=== PATIENT | male | born 1975 | race Caucasian/White ===

== ENCOUNTER 2023-03-20 10:24 | Emergency (ER) | payer OTHER, SELFPAY ==
--- NOTE | 2023-03-20 10:28 | ED.URI ---
HPI - URI/Sore Throat General Chief Complaint: Upper Respiratory Infection Stated Complaint: Sinus Problems Time Seen by Provider: 03/20/23 10:29 Source: patient Mode of arrival: ambulatory Limitations: no limitations History of Present Illness HPI Narrative: Eddy is a 47-year-old male patient presenting to the clinic today with complaints of sinus issues. He reports he has had sinus pressure, congestion, and headache x3 days. No concern for COVID. States he has been at home along for the past 2 weeks. Denies any known fever or chills. Has recently been on amoxicillin for a root canal/tooth infection. MD elicited complaint: cough, nasal congestion and sinus pain Related Data Allergies Allergy/AdvReac Type Severity Reaction Status Date / Time No Known Allergies Allergy Verified 03/20/23 10:27 Review of Systems Review of Systems: Pertinent positives per HPI. Patient denies any fever, chills, rash, headache, visual changes, dizziness, cough, shortness of breath, chest pain, palpitations, nausea, vomiting, diarrhea, constipation, abdominal pain, or any urinary issues. [facility] Past Medical History Medical History Dyslipidemia Left inguinal hernia Vitamin B12 deficiency Vitamin D deficiency Family History Family History Other Family history of malignant neoplasm Social History Social History Smoking status: Current every day smoker Smoking end date: 06/01/97 Alcohol intake: current Drinks per week: 1 Substance use: never Substance use type: does not use Lack of Transportation: No Living arrangements: with family Occupation/Education: occupation Gender identity (if verbalized by the patient): Male Comments At the time of my signature, I reviewed and agree with the nursing past medical, surgical, social, and family history. There is no relevant family history pertinent to the patient complaint. Exam Narrative: General: Well-developed, overweight, in no apparent distress Head: Normocephalic, atraumatic Eyes: Pupils equally round and reactive to light bilaterally, EOM intact, sclera and conjunctive clear, no discharge, lids normal Ears: TMs intact and congested, ear canals clear, no drainage, grossly hearing normal. Nose: Nares patent, clear discharge, no inflammation, no sinus tenderness. Mouth: Oral pharynx red without lesions or masses, good dentition, MMM. Neck: Supple, trachea midline, no enlargement of anterior or posterior cervical nodes, no thyroid masses or goiter palpable. Cardio: Regular rate and rhythm, s1 and s2 normal, no murmur appreciated. Resp: Clear to auscultation bilaterally, no rhonchi, rales, wheezing or rubs Course Course Emergency Course: Portions of this record may have been created with voice recognition software. Level of Care: Express Care Visit Vital Signs Vital signs: Vital signs reviewed MDM - URI/Sore Throat MDM Narrative Medical decision making narrative: At the time of visit patient is resting comfortably on the exam table. I suspect patient has URI. A explained to the patient that we do not typically treat bacterial sinus infections until 10 days or more of symptoms. Will send in prescription for some prednisone to help with the congestion and sinus pressure. Supportive measures were discussed with the patient he voiced understanding discharge instructions agrees to treatment plan. Differential Diagnosis Differential diagnosis: Likely upper respiratory infection, otitis media, sinusitis, viral infection, bronchitis, influenza, pharyngitis and other (COVID) Discharge Plan Discharge Clinical Impression: Acute upper respiratory infection Patient Disposition: Home, Self-Care Condition: Stable Instructions: Antibiotic Form, Upper Respiratory Infection
[2023-03-20 10:33] VITALS: BP 136/65; PULSE 73; RESP 16; TEMP 36.7; O2SAT 98
== END 2023-03-20 10:41 | disposition home or self-care (01) ==
PROVIDERS: Emergency Provider Nurse Practitioner Family; PCP Physician Assistant Medical
DX: J06.9 Acute upper respiratory infection, unspecified (principal); E78.5 Hyperlipidemia, unspecified; E53.8 Deficiency of other specified B group vitamins; E55.9 Vitamin D deficiency, unspecified; Z87.891 Personal history of nicotine dependence
CPT/HCPCS: 99213; G0463

== ENCOUNTER 2024-01-11 12:04 | Emergency (ER) | payer OTHER, SELFPAY ==
--- NOTE | ~2024-01-11 | XR_ITS ---
EXAMINATION: XR chest 2V DATE: 01/11/2024 12:23 INDICATION: Fever and cough. Abnormal breath sounds in right lower lobe. TECHNIQUE: Frontal and lateral views of the chest were obtained. COMPARISON: None. FINDINGS: There are airspace opacities in right lower lobe, consistent with pneumonia. No pleural eff usion or pneumothorax. The heart size is normal. IMPRESSION: 1. Airspace opacities in right lower lobe, consistent with pneumonia. Reviewed, dictated and finalized at location A.
[2024-01-11 12:12] VITALS: BP 144/71; PULSE 85; RESP 18; TEMP 36.6; O2SAT 96
--- NOTE | 2024-01-11 12:12 | ED.URI ---
HPI - URI/Sore Throat General Chief Complaint: Upper Respiratory Infection Stated Complaint: cold symptoms Time Seen by Provider: 01/11/24 12:13 Source: patient, RN notes reviewed and old records reviewed Mode of arrival: ambulatory Limitations: no limitations History of Present Illness HPI Narrative: patient presents to [facility] with complaints fever and cough intermittently for the past 3 days. He does report that 1 of his children has recently been diagnosed with pneumonia. Patient has been taking ibuprofen for his symptoms with moderate relief. He does report some associated body aches. No runny nose, throat became a little bit sore today. He attributes this to cough. He reports body aches become worse when he coughs. He denies any injury or trauma. denies shortness of breath or wheezing.No other concerns or complaints at this time Related Data Allergies Allergy/AdvReac Type Severity Reaction Status Date / Time No Known Allergies Allergy Verified 01/11/24 12:13 Review of Systems Review of Systems: All systems reviewed & are unremarkable except as noted in HPI and below Constitutional: Constitutional: Reports no additional constitutional complaints ENT: Reports system reviewed and no additional complaints, except as documented Cardiovascular: Cardiovascular: Reports no additional cardiovascular complaints Respiratory: Respiratory: Reports as per HPI, Reports no additional respiratory complaints and Reports pain with cough Gastrointestinal: Gastrointestinal: Reports no additional gastrointestinal complaints Musculoskeletal: Musculoskeletal: Reports as per HPI and Reports myalgias PMFSH Past Medical History Medical History Dyslipidemia Left inguinal hernia Vitamin B12 deficiency Vitamin D deficiency Family History Family History Other Family history of malignant neoplasm Social History Social History Smoking status: Current every day smoker Smoking end date: 06/01/97 Alcohol intake: current Drinks per week: 1 Substance use: never Substance use type: does not use Lack of Transportation: No Living arrangements: with family Occupation/Education: occupation Gender identity (if verbalized by the patient): Male Comments At the time of my signature, I reviewed and agree with the nursing past medical, surgical, social, and family history. There is no relevant family history pertinent to the patient complaint. Exam Const: General: cooperative, no acute distress, alert and awake Orientation/consciousness: oriented to person, oriented to place and oriented to time HENMT: Head: normal to inspection Mouth: Yes moist mucous membranes Resp: Effort & Inspection: normal respiratory effort and able to speak in complete sentences Auscultation: no crackles, no rales, no rhonchi, no wheezes and vesicular breath sounds on the right (lower lobe) Cardio: Palpation: normal PMI Rate: regular rate Rhythm: regular rhythm Heart sounds: S1 normal heart sound present and S2 normal heart sound present Neuro: General: oriented to person, oriented to place and oriented to time Cranial nerves: Yes CN's II-XII intact bilaterally Psych: Appearance: grossly normal Thought process: Normal thought process present Insight: Good insight present (Psych) Judgement: Good judgement present (Psych) Course Course Level of Care: Express Care Visit Vital Signs Vital signs: Vital Signs Temperature 97.8 F 01/11/24 12:12 Pulse Rate 85 01/11/24 12:12 Respiratory Rate 18 01/11/24 12:12 Blood Pressure 144/71 H 01/11/24 12:12 Pulse Oximetry 96 01/11/24 12:12 Oxygen Delivery Room Air 01/11/24 12:12 Temperature 97.8 F 01/11/24 12:14 Pulse Rate 85 01/11/24 12:14 Respiratory Rate 18 01/11/24 12:14 Blood Pressure 144
[2024-01-11 12:14] VITALS: BP 144/71; PULSE 85; RESP 18; TEMP 36.6; O2SAT 96
[2024-01-11 12:46] LABS: EDINFLUASCREEN Negative; EDINFLUBSCREEN Negative
== END 2024-01-11 12:54 | disposition home or self-care (01) ==
PROVIDERS: Emergency Provider Nurse Practitioner Family
DX: J18.9 Pneumonia, unspecified organism (principal); Z20.822 Contact with and (suspected) exposure to COVID-19; Z87.891 Personal history of nicotine dependence; E78.5 Hyperlipidemia, unspecified
CPT/HCPCS: 71046; 87426; 87804; 99213; G0463

== ENCOUNTER 2024-04-25 10:14 | Outpatient (CLI) | payer OTHER, SELFPAY ==
--- NOTE | 2024-04-25 10:25 | ECG_ITS ---
Test Date: 2024-04-25 10:30:10 Measurements Intervals [place] Rate: 66 P: 32 MN: 151 QRS: 18 QRSD: 109 T: 4 QT: 364 QTc: 383 Interpretive Statements SINUS RHYTHM NORMAL ECG No previous ECG available for comparison Electronically Signed On 04-25-2024 10:43:00 [employer] by Taz Newman D.O.
== END 2024-04-25 10:15 | disposition home or self-care (01) ==
LOC: ANHSURGERY 10:19
PROVIDERS: PCP Nurse Practitioner Family; Visit Provider Surgery
DX: K40.90 Unilateral inguinal hernia, without obstruction or gangrene, not specified as recurrent (principal); E78.5 Hyperlipidemia, unspecified; Z01.818 Encounter for other preprocedural examination
CPT/HCPCS: 36415; 86850; 86900; 86901; 93005

== ENCOUNTER 2024-05-04 03:10 | Day surgery (SDC) | payer OTHER, SELFPAY ==
--- NOTE | 2024-04-21 14:42 | PC.NURSE ---
Report to the Outpatient Waiting Room, entrance under the green pavilion located off [facility], at time 0600 on date 05/04/24. Planned Procedure Time: 0730.? Time changes happen often and if your time is changed the preop area will call you the afternoon before. - You and your visitor will be asked to self-screen and do not enter if you have any COVID symptoms. Please call surgeon if you need to reschedule. - A mask is optional within the hospital at this time. Patients may have clear liquids (water, carbonated beverages, clear teas, apple juice) until 3 hours prior to surgery with a maximum of 20 ounces. 0430 - No food from midnight until time of surgery and no smoking. This includes no chewing gum, candy or mints. - Infants may have breast milk until 4 hours before surgery, formula 6 hours prior to surgery. - Children will be allowed to drink immediately following surgery.? If applicable, please bring a bottle or sippy cup to assist with drinking. Juice, water, soda, and popsicles are readily available.? For infants on formula, please bring formula the day of surgery.? Pacifiers are allowed. Take only the following medications with a SIP of water on the morning of surgery: bupropion DO NOT STOP ANY OF YOUR OTHER PRESCRIPTION MEDICATIONS PRIOR TO SURGERY EXCEPT THE FOLLOWING Medications to discontinue per physician None Date to take last dose N/A Please no make-up, nail serbian, hairspray, perfume, deodorant, or body powder the day of surgery.? No jewelry (including any body piercings) or valuables the day of surgery, leave them at home.? Please take a shower or bath the night before, or the morning of, surgery with an antibacterial soap.? Wear comfortable, loose fitting clothing.? Children are encouraged to wear pajamas. - Jewelry must be removed prior to entering the operating room.? Rings and piercings that are not removed may be cut off. - The hospital will not accept responsibility for valuables.? - Please leave all valuables, including medications, at home the day of surgery. If you are going home after surgery, a licensed driver license technician must drive you home.? - NO public transportation without another adult if you receive anesthesia. - We recommend that an adult stay with you for 24 hours following discharge. - We also recommend that you do not drive, make important decision, drink alcoholic beverages, or take any drugs that were not prescribed by your health care provider for at least 24 hours after your discharge time. For Pediatric surgeries, we recommend two adults accompany the child home. Follow any additional instructions given to you from your surgeon. Telephone instructions given to Patient-Eddy Perdomo and asked if any additional questions and then verbalized understanding. Patient advised to call surgeon office or pre surgery nurse liaison [phone] if any additional questions.
[2024-04-21 14:47] VITALS: BMI 33.3
[2024-05-04] VITALS (11 sets, daily range): BP systolic 122–150; BP diastolic 63–83; PULSE 68–98; RESP 11–20; TEMP 36.3–36.4; O2SAT 96–99; BMI 33.1
[2024-05-04] MEDS: LACTATED RINGERS 1,000 ML 30 ML IV CONT ×3 (06:25→11:08)
[2024-05-04] MEDS: ACETAMINOPHEN 500 MG TABLET 1000 MG PO (06:31)
[2024-05-04] MEDS: KETOROLAC 15 MG/ML VIAL (*BKC) IV PUSH ×2 (06:32→10:16)
--- NOTE | 2024-05-04 07:16 | WPDANESEPPF ---
Anes - Initial Pre Proc Eval Procedure: Operation Date: 05/04/24 07:30 Proposed Procedures p Robotic Assisted Laparoscopic Left Inguinal Hernia Repair with Mesh - Hung Springer MD Date/Time: 05/04/24 07:16 Surgeon: Hung Springer MD Pre Op Diagnosis: Reducible Left Ing Hernia Patient Data Age: 48 Gender: M Height: 1.83 m Weight: 110.9 kg Last Vital Signs Temp 36.3 C L 05/04/24 06:00 Pulse 68 05/04/24 06:00 Resp 16 05/04/24 06:00 BP 138/77 05/04/24 06:00 Pulse Ox 96 05/04/24 06:00 O2 Del Method Room Air 05/04/24 06:00 Allergies Allergy/AdvReac Type Severity Reaction Status Date / Time No Known Allergies Allergy Verified 05/04/24 06:42 Home Medications Medication Instructions Recorded Confirmed Type bupropion HCl 200 mg tablet,12 hr See Rx Instructions .Route 08/24/23 04/21/24 Rx sustained-release .COMPLEX #180 tabs atorvastatin 40 mg tablet See Rx Instructions .Route 03/11/24 04/21/24 Rx .COMPLEX #90 tabs Patient hx anesthesia problems: none Family hx anesthesia problems: none Results Review: All pre-operative results and documents have been reviewed as part of the pre-operative evaluation. [facility] Past Medical History Medical History Dyslipidemia Left inguinal hernia Vitamin B12 deficiency Vitamin D deficiency Family History Family History Other Family history of malignant neoplasm Social History Social History Social History: 03/11/24 very confident with medical forms Smoking packs per day: 1 Smoking cigarettes per day: 20.0 Years smoked: 15 Smoking pack-years: 15.00 Smoking status: Former smoker Tobacco type: cigarettes Smoking end date: 06/01/97 Alcohol intake: current Drinks per week: 4 Substance use: never Substance use type: does not use Do You Feel Safe in your Home?: Yes Lack of Transportation: No Lack of Food: Never True Current Housing: I Have Housing Concerned About Future Housing: No Difficulty Paying Gas/Electric Bills: No Difficulty Paying for Meds: No Currently Unemployed: No Education: High School Diploma/GED Difficulty w/ Childcare or Family Care: No Living arrangements: with family Occupation/Education: occupation Gender identity (if verbalized by the patient): Male Spiritual care concerns: No Anes - Eval Final PreProcedure Day of Procedure 05/04/24 07:16 Patient weight: obese Heart: regular rate and rhythm Lungs: clear to auscultation Airway: Mallampati scale class III Neurological: alert and oriented Last oral intake: >/= 8 hours ASA classification: III Emergent: no Anesthetic plan: proceed Anesthesia type and monitoring: general ETT and standard monitoring Results Review: All pre-operative results and documents have been reviewed as part of the pre-operative evaluation. Informed Consent: The patient's anesthetic plan and its attendant risks and benefits were discussed with the patient/family/POA. Questions were solicited and answers provided to the satisfaction of the patient/family/POA.
--- NOTE | 2024-05-04 07:18 | P.HP_ITS ---
H&P: HPI History of Present Illness Date/Time: 05/04/24 07:18 Chief Complaint: Left inguinal hernia Narrative: Eddy is a 48 y/o male who presents to the office at the request of Rosangela MÁRQUEZ for evaluation of a left inguinal hernia. Patient states this hernia has been present for about six years. He first noticed this after lifting something heavy. He denies any pain but does report a increase in size of the bulge. States it is reducible. Denies any issues with bowel habits or urinating. Review of Systems Review of Systems: The remainder of the review of systems to include constitutional, HEENT, cardiovascular, respiratory, GI, , integumentary, musculoskeletal, endocrine, immunologic, hematologic, psychiatric, and neurologic are all negative except for which is mentioned above in the HPI. [facility] Past Medical History Medical History Dyslipidemia Left inguinal hernia Vitamin B12 deficiency Vitamin D deficiency Family History Family History Other Family history of malignant neoplasm Social History Social History Social History: 03/11/24 very confident with medical forms Smoking packs per day: 1 Smoking cigarettes per day: 20.0 Years smoked: 15 Smoking pack-years: 15.00 Smoking status: Former smoker Tobacco type: cigarettes Smoking end date: 06/01/97 Alcohol intake: current Drinks per week: 4 Substance use: never Substance use type: does not use Do You Feel Safe in your Home?: Yes Lack of Transportation: No Lack of Food: Never True Current Housing: I Have Housing Concerned About Future Housing: No Difficulty Paying Gas/Electric Bills: No Difficulty Paying for Meds: No Currently Unemployed: No Education: High School Diploma/GED Difficulty w/ Childcare or Family Care: No Living arrangements: with family Occupation/Education: occupation Gender identity (if verbalized by the patient): Male Spiritual care concerns: No Meds Home Medications and Allergies Home Medications Medication Instructions Recorded Confirmed Type bupropion HCl 200 mg tablet,12 hr See Rx Instructions .Route 08/24/23 04/21/24 Rx sustained-release .COMPLEX #180 tabs atorvastatin 40 mg tablet See Rx Instructions .Route 03/11/24 04/21/24 Rx .COMPLEX #90 tabs Allergies Allergy/AdvReac Type Severity Reaction Status Date / Time No Known Allergies Allergy Verified 05/04/24 06:42 Vital Signs Vital Signs - 24 hr 05/04/24 06:00 Temperature 36.3 C L Pulse Rate 68 Respiratory Rate 16 Blood Pressure 138/77 Pulse Oximetry 96 Oxygen Delivery Room Air Exam Const: General: comfortable and no acute distress HENMT: Ears: TM's normal bilaterally Face/Nose/Sinus: Normal nares present Mouth: Yes moist mucous membranes Eyes: General: appearance normal, both eyes and all related structures Sclera: sclerae normal Pupils: Equal, round and reactive pupils present EOM: EOMs intact bilaterally Neck: Neck: supple and no JVD Resp: Effort & Inspection: normal respiratory effort Auscultation: clear to auscultation bilaterally Cardio: Rate: regular rate Rhythm: regular rhythm GI: GI Palp: Yes Soft to palpation, No Firmness to palpation present (GI), No Tenderness to palpation present (GI), No Guarding due to palpation present (GI) and No Hernia present : Other: Penis: normal penis Scrotum: scrotum normal Testes: Testes normal Other: Moderate sized left inguinal hernia. Soft, reducible, non tender to palpation. No right sided weakness. Skin: General skin exam: normal color and no rashes or lesions noted Neuro: General: gait normal Speech: normal speech Motor exam (neuro): 5/5 motor strength present throughout Sensory Exam: normal sensation Extrem: General: normal to inspection Psych: Mental Status: mental status grossly normal Affect: normal affect Assessment and Plan Assessment and plan (1) Left inguinal hernia: Code(s): K40.90 - Unilateral inguinal hernia, without obstruction or gangrene, not specified as recurrent Status: Acute Assessment and Plan: I have reviewed Rosangela MÁRQUEZ's office note prior to today's visit. Moderate sized left inguinal hernia noted on physical exam. I have recommended a robotic assisted laparoscopic left inguinal hernia repair with mesh to be done under general anesthesia as an outpatient. The procedure was discussed in detail including the use of mesh, general description, and usual course of recovery. Risks of recurrence, infection, postop bleeding, prolonged postop pain, possible need to return to surgery were discussed as well. Patient will have a 15lb lifting restriction for 2 weeks postoperatively. All questions were answered. Patient would like to proceed. Follow-up 2 weeks postoperatively.
--- NOTE | 2024-05-04 07:20 | WPDHPUPDATE1 ---
History and Physical Update Update Date/Time: 05/04/24 07:20 History and Physical has been reviewed, including an updated exam of the patient. There are NO changes in the patient's condition. Risks, benefits, and alternatives have been discussed and questions answered. Patient agrees to proceed with procedure.
[2024-05-04] MEDS: ceFAZolin 2 GM/D5W 50 ML 2 GM/50 ML BAG IVPB (07:31)
--- NOTE | 2024-05-04 08:09 | SUR.OPER ---
Dr. Springer obtained verbal consent from Pt's Miguel to also repair the right inguinal hernia.
[2024-05-04] MEDS: BUPivacaine HCL 0.5% 10 ML AMP 30 ML INFILTRATE (08:14)
[2024-05-04] MEDS: LIDO 1%/EPINEPHRINE 1:100,000 50 ML VIAL 30 ML INFILTRATE (08:15)
--- NOTE | 2024-05-04 10:34 | W.PM.PROC2 ---
Procedure Note - Detailed Date of Procedure 05/04/24 Pre-op Diagnosis Reducible Left Ing Hernia Post-op Diagnosis Other (Reducible Bilateral inguinal hernias (right indirect, left direct)) Procedure Performed Robotic assisted laparoscopic bilateral inguinal hernia repairs with Bard 3D mid weight mesh. Surgeon Hung Springer MD [employer] Operator Iza Pelayo [facility] Anesthesia General Indications Patient is a 48-year-old male who presented for repair of a left inguinal hernia found on exam in the office which was reducible. It was getting larger and being symptomatic with soreness and pain. Upon entry into the abdomen I observed a right indirect inguinal hernia which was not appreciated on physical examination. He also had the known direct left inguinal hernia. He underwent bilateral I did call the patient's who was in the waiting room and discussed with her that the patient did have bilateral inguinal hernias and recommended proceeding with repair of both sides during the same anesthetic. She was in agreement and gave consent to proceed with a bilateral robotic assisted laparoscopic inguinal hernia repair with mesh. Findings Bilateral inguinal hernias. Right indirect and left direct. No bowel incarcerated in the hernias. Description of Procedure After informed consent was obtained patient brought to the operating room was placed supine position and general endotracheal anesthesia was administered. The abdomen and bilateral groin regions were then prepped and draped usual sterile fashion. A time-out was then performed correctly identifying the patient as well as procedure to be performed. He was given perioperative IV antibiotics. I then entered the abdomen left upper quadrant utilizing a 5mm Optiview port. Once inside the abdomen insufflated to adequate pneumoperitoneum of 15mmHg of CO2. A nonobstructive view of both groin regions and the patient was known to have a reducible left inguinal hernia. I confirmed he had a direct left inguinal hernia on the left side. There was no bowel within the hernia. I then observed a small indirect right inguinal hernia as well. This was not appreciated on physical examination prior to surgery. I then called the patient's was in the waiting room and discussed with her that I did find a right inguinal hernia as well. I then recommended that we go ahead repair both inguinal hernias during the same anesthetic. She was in agreement and gave consent to proceed with a bilateral robotic assisted laparoscopic inguinal hernia repair with mesh. I then placed additional robotic trocars across the mid abdomen under direct visualization. The [employer] robot was brought to the patient's bedside and docked to the right side of the operating bed. The robotic arms were then attached the robotic ports. Robotic instruments were then advanced into the abdomen under direct visualization. I then scrubbed out the procedure sent down at the robotic console to perform the dissection. I started by making a preperitoneal flap across the lower abdominal wall. This was done with a the robotic hook cautery. Once I was in this preperitoneal plane I dissected distally 1st on the right side down to the internal ring and then continued medially until identified the right pubic tubercle. I then performed a similar dissection on the left side all the way down to left pubic tubercle. I then divided the median umbilical ligament and dropped the bladder down and continued my dissection down onto the pubic symphysis in the bilateral pubic tubercles and down to the space of Retzius. Then laterally on the right side 1st dissected to the internal ring and then reduced a small cord lipoma out of the right-sided internal ring. I then dissected out the small right indirect inguinal hernia sac from the other cord structures without injuring the vas deferens and testicular vessels. The peritoneum of the right side was then dissected proximally up onto the psoas muscle until the vas deferens and testicular vessels . There is no evidence of a direct defect. No evidence of have femoral hernia on the right side. I then turned my attention to dissection of the left inguinal hernia. I then reduced the pseudo sac out of the direct defect on the left inguinal hernia. I then dissected down along the pubic tubercle and reduced the preperitoneal fat and dissected down into the space of Retzius. The my dissection across the internal ring and there was no indirect inguinal defect so there was no need for dissection of the peritoneum out of the internal ring. I then dissected the peritoneal flap proximally up onto the psoas muscle on the left side until the vas deferens and testicular vessels . I felt that I had enough of the flap dissected so that the mesh would lay nicely without rolling up the proximal protrusions of the mesh bilaterally. Extra-large piece of Bard 3D mid weight mesh measuring [id number] was then used oriented for the right side. It was placed into the abdomen and then placed into the dissected space in the right groin region. Covered the whole myopectineal orifice. Medial portion of the right-sided mesh overlapped the pubic tubercle and the pubic symphysis. It was then secured to the tissues around the pubic symphysis and pubic tubercle utilizing 2-0 Vicryl sutures. Laterally the mesh was secured to the muscle anterior medial to the right anterior superior iliac spine. An additional suture was then placed at the potential space for the direct defect on the right side to further approximate the mesh to the muscle in this area. The mesh laid out very nicely without any tension. I then placed a 2nd piece of mesh into the abdomen. An extra-large piece of Bard 3D mid weight mesh oriented for the left side measuring [id number] was placed into the abdomen. Prior to placing the mesh into the space I then closed the direct defect utilizing a running 2-0 absorbable V lock suture. The the attenuated transversalis muscle fibers and pseudo sac was imbricated with closure of the defect. The mesh was then laid out over the dissected space to cover the home myopectineal orifice. I then proceeded to secure the left-sided mesh the tissues around the pubic tubercle and pubic symphysis as well. The lateral suture was placed the muscle to secure the mesh to the abdominal wall anterior medial to the left anterior suprailiac spine. Additional 2-0 Vicryl suture was then placed at the closed defect of the direct space. Both meshes laid out very nicely without any tension. I then closed the peritoneal flap utilizing a running absorbable 2 0V lock suture. Once this was done all the mesh was excluded from the intra-abdominal viscera. There was a small hole in the peritoneum on the left side which was closed with placement of 2 separate 2-0 Vicryl sutures. I then checked in all the bowel appeared to be normal without injury or bleeding. There were no holes in the peritoneal flap. I then scrubbed back into the procedure and the [employer] robot was undocked from the patient's bedside the and the robotic instruments removed from the abdomen. I then visualized the abdomen as it decompressed as all the port sites were then removed. I then irrigated out the port sites sterile saline solution and hemostasis was good. I then closed the 8mm umbilical trocar port fascial defect utilizing 0 Vicryl suture. The 12mm left upper quadrant trocar port was also closed at the fascia level with a 0 Vicryl suture. The skin edges in all the port sites were approximated utilizing a running subcuticular 4-0 Monocryl suture. The incisions were then cleaned the skin glue sterile dressings were applied. A scrotal support was applied at the end of the procedure. The patient tolerated the procedure well no complications. All sponges, needles, and instrument counts were correct at the end procedure. EBL was _30__cc. The patient was awakened and taken to recovery in stable and satisfactory condition. Implants Bard 3D mid weight mesh extra-large [id number], 1 piece placed in the right inguinal region and a 2nd piece placed in the left inguinal region Estimated Blood Loss 30 Drains No Packing No Pathology None sent Complications No immediate complications Condition Stable Disposition PACU [facility] Billing Surgery - Charge Forward: Surgery Billing
[2024-05-04] MEDS: fentaNYL CITRATE INJ (*CRX) 100 MCG/2 ML VIAL 25 MCG IV PUSH ×4 (11:24→11:39)
[2024-05-04] MEDS: oxyCODONE HCL (*CRX) 5 MG TAB IR PO (12:13)
== END 2024-05-04 12:57 | disposition home or self-care (01) ==
PROVIDERS: PCP Nurse Practitioner Family; Visit Provider Surgery
PROC: 8E0Y4CZ Robotic Assisted Procedure of Lower Extremity, Percutaneous Endoscopic Approach (ICD-10-PCS; CPT 49650; principal; 2024-05-04 07:30)
DX: K40.20 Bilateral inguinal hernia, without obstruction or gangrene, not specified as recurrent (principal); E78.5 Hyperlipidemia, unspecified; E53.8 Deficiency of other specified B group vitamins; E55.9 Vitamin D deficiency, unspecified; E66.9 Obesity, unspecified; Z68.33 Body mass index [BMI] 33.0-33.9, adult; Z87.891 Personal history of nicotine dependence; Z80.9 Family history of malignant neoplasm, unspecified
CPT/HCPCS: 49650; S2900; A9270; C1781; J0690; J1171; J1885; J2003; J2004; J2250; J2704; J3010; J7030; J7120

== ENCOUNTER 2024-11-29 08:07 | Emergency (ER) | payer OTHER, SELFPAY ==
--- OUTSIDE RECORDS SUMMARY | 2024-11-29 08:12 | XMS_ITS | Clinical Summary ---
Author Organization [facility] Address [address] [place] [id number] Care Team Providers [employer] Membership Sales Agent Name Role Phone Unavailable Primary Care Provider Unavailabl e Source Comments [facility],non-owned Affiliates and Associated Physician Practices is amultiple site organization consisting of ambulatory clinics and hospital sitesin [place], [place], [place] and [place]. This disclosure is being madepursuant to the Care Everywhere program and may not contain all information available regarding this patient. 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 Gender Identity Not on file Sexual Orientation Not on file Plan of Treatment Health Maintenance Due Date Last Done Comments COLOGUARD (AGES 45-75) - COL ON CA SCREENING 1977 COLON MONITORING 1977 COLONOSCOPY - COLON CA SCREENING 1977 CT COLONOGRAPHY - COLON CA SCREENING 1977 Colorectal Cancer Screening 1977 FIT - COLON CA SCREENING 1977 FLEX SIG - COLON CA SCREENING 1977 LIPID TESTING 1977 HIV SCREENING 1992 HEPATITIS C SCREENING 12/02/1995 DTAP/TDAP/TD VACCINES (1 - Tdap) 1996 HEPATITIS B VACCINE (1 of 3 - 19+ 3-dose series) 1996 COVID-19 VACCINE ( - 2023-2 5 season) 2024 DEPRESSION SCREENING 06/01/2024 INFLUENZA VACCINE (Season Ended) 2025 ZOSTER VACCINE (1 of 2) 12/07/2027 HIB VACCINE Aged Out No longer eligi ble based on patient's age to complete this topic HPV VACCINE Aged Out No longer eligi ble based on patient's age to complete this topic MENINGOCOCCAL (Group B) VACC INE SHARED DECISION-MAKING Aged Out No longer eligibl e based on patient's age to complete this topic MENINGOCOCCAL GROUPS A/C/Y/W VACCINE Aged Out No longer eligible b ased on patient's age to complete this topic PNEUMOCOCCAL VACCINE Aged Out No long er eligible based on patient's age to complete this topic
--- OUTSIDE RECORDS SUMMARY | 2024-11-29 08:12 | XMS_ITS | Clinical Summary ---
Author Organization [facility] Address [address] [place] [id number] Care Team Providers Care Life Enrichment Director Name Role Phone None, Provider MD Primary Care Provider Unavaila ble Allergies No known active allergies Medications atorvastatin (LIPITOR) 40 MG tablet Take 40 mg by mouth nightly at bedtime. 02/25/2022 Active buPROPion SR 200 MG TABLET SR 12 HR 12 hr tablet Take 1 tablet by mouth 2 (two) times daily. 02/25/2022 Active Social History Tobacco Use Types Packs/Day Years Used Date Smoking Tobacco: Light Smoker Smokeless Tobacco: Never Sex and Gender Information Value Date Recorded Sex Assigned at Not on file Legal Sex Male 8:35 PM CDT Gender Identity Not on file Sexual Orientation Not on file Last Filed Vital Signs Vital Sign Reading Time Taken Comments Blood Pressure 149/84 04/05/2022 9:44 AM CDT Pulse 106 04/05/2022 9:44 AM CDT Temperature 37.1 C (98.7 F) 04/05/2022 9:44 AM CDT Respiratory Rate 18 04/05/2022 9:44 AM CDT Oxygen Saturation 100% 04/05/2022 9:44 AM CDT Inhaled Oxygen Concentration - - Weight 108.9 kg (240 lb) 04/05/2022 9:44 AM CDT Height 182.9 cm (6') 04/05/2022 9:44 AM CDT Body Mass Index 32.55 04/05/2022 9:44 AM CDT Plan of Treatment Health Maintenance Due Date Last Done Comments Colorectal Cancer Screening Colonoscopy (10 Years) 1977 Annual Physical 1980 Hepatitis C 12/07/1995 DTaP, Tdap and Td Vaccines ( 1 - Tdap) 1996 Hepatitis B Vaccines (1 of 3 - 19+ 3-dose series) 1996 Pneumococcal Vaccine: Pediatrics (0 to 5 Years) and At-Risk Patients (6 to 49 Years) (1 of 2 - PCV) 1996 COVID-19 Vaccine (3 - 2023-2 5 season) 2024 01/31/2021, 01/17/2021 Meningococcal B Vaccine Aged Out No l onger eligible based on patient's age to complete this topic Meningococcal Vaccine Aged Out No deya keshawn eligible based on patient's age to complete this topic RSV Immunizations Under 20 Months Aged Out No longer eligible b ased on patient's age to complete this topic Insurance [facility] Care Teams Life Enrichment Director Relationship Specialty Start Date End Date None, Provider, PCP - General UNKNOWN PHYSICIAN SPECIALTY 04/05/22
[2024-11-29 08:17] VITALS: BP 136/79; PULSE 74; RESP 17; TEMP 36.7; O2SAT 98
--- NOTE | 2024-11-29 08:28 | ED.GENADULT ---
HPI - General Adult General Chief complaint: Skin/Abscess/Foreign Body Stated complaint: bumps on abdomin History of Present Illness HPI narrative: Eddy Perdomo is a 48 y/o male who presents with report of dealing with some folliculitis after shaving a couple weeks ago to his pelvic region. He states at work he wears a heavy belt over that area and it has continued to become more irritated and inflamed. Denies fever/chills / Related Data Allergies Allergy/AdvReac Type Severity Reaction Status Date / Time No Known Allergies Allergy Verified 11/29/24 08:11 Review of Systems Review of Systems: All systems reviewed & are unremarkable except as noted in HPI and below PMFSH Past Medical History Medical History Vitamin B12 deficiency Vitamin D deficiency Dyslipidemia Left inguinal hernia Surgical History Surgical History H/O bilateral inguinal hernia repair 05/04/24 Robotic assisted laparoscopic bilateral inguinal hernia repairs with Bard 3D mid weight mesh. Dr. Springer Family History Family History Other Family history of malignant neoplasm Social History Social History Social History: 09/02/24 very confident with medical forms Smoking packs per day: 1 Smoking cigarettes per day: 20.0 Years smoked: 15 Smoking pack-years: 15.00 Smoking status: Former smoker Tobacco type: cigarettes Smoking end date: 06/01/97 Alcohol intake: current Drinks per week: 4 Substance use: never Substance use type: does not use Do You Feel Safe in your Home?: Yes Lack of Transportation: No Lack of Food: Never True Current Housing: I Have Housing Concerned About Future Housing: No Difficulty Paying Gas/Electric Bills: No Difficulty Paying for Meds: No Currently Unemployed: No Education: High School Diploma/GED Difficulty w/ Childcare or Family Care: No Living arrangements: with family Occupation/Education: occupation Gender identity (if verbalized by the patient): Male Spiritual care concerns: No Exam Narrative: GENERAL: Well-appearing, well-nourished, and in no acute distress. HEAD: Normocephalic, atraumatic. EYES: PERRLA and EOMI. ENT: Nares clear, no rhinorrhea or epistaxis. Mucous membranes moist. NECK: Supple. CHEST: No respiratory distress. HEART: Regular rate EXTREMITIES: Normal range of motion. SKIN: + wide spread vesicular round areas with some flesh clearing in the center around the hair follicles of the pelvic / lower abdomen area. NEURO: No focal deficits. Alert and oriented x3. PSYCH: Normal mood and affect. Course Course Level of Care: Express Care Visit Vital Signs Vital signs: Vital Signs Temperature 36.7 C 11/29/24 08:17 Pulse Rate 74 11/29/24 08:17 Respiratory Rate 17 11/29/24 08:17 Blood Pressure 136/79 11/29/24 08:17 Pulse Oximetry 98 11/29/24 08:17 Oxygen Delivery Room Air 11/29/24 08:17 Temperature 36.7 C 11/29/24 08:17 Pulse Rate 74 11/29/24 08:17 Respiratory Rate 11/29/24 08:17 Blood Pressure 136/79 11/29/24 08:17 Pulse Oximetry 98 11/29/24 08:17 Oxygen Delivery Room Air 11/29/24 08:17 Medical Decision Making MDM Narrative Medical decision making narrative: Hx and Exam consistent with moderate to severe folliculitis / no drainage or scabbing noted Area + painful not so much itching no palpable abscess or evidence of cellulitis with the wide spread area plan to treat with topical and oral antibiotic close PCP follow up Return precautions discussed Medical Records Medical records reviewed: Yes I reviewed the external patient's medical records. Vital Signs Vital Signs: Vital Signs Temperature 36.7 C 11/29/24 08:17 Pulse Rate 74 11/29/24 08:17 Respiratory Rate 11/29/24 08:17 Blood Pressure 136/79 11/29/24 08:17 Pulse Oximetry 98 11/29/24 08:17 Oxygen Delivery Room Air 11/29/24 08:17 Temperature 36.7 C 11/29/24 08:17 Pulse Rate 74 11/29/24 08:17 Respiratory Rate 11/29/24 08:17 Blood Pressure 136/79 11/29/24 08:17 Pulse Oximetry 98 11/29/24 08:17 Oxygen Delivery Room Air 11/29/24 08:17 vitals reviewed Discharge Plan Discharge Clinical Impression: Folliculitis Patient Disposition: Home Condition: Stable Instructions: Antibiotic Form Additional Instructions: Start taking the Bactrim twice daily for 1 week Start using a gentle cleanser twice daily then apply the topical antibiotic ointment to the area Follow up with your PCP in 1 week This should improve with treatment, if you develop any worsening symptoms then return for evaluation Patient Language: Ethiopian Prescriptions: New mupirocin [Centany] 2 % ointment 1 applic topical BID Qty: 22 1RF sulfamethoxazole-trimethoprim [Bactrim DS] 800-160 mg tablet 1 tablet PO Q12H Qty: 14 0RF No Action bupropion HCl [Wellbutrin XL] 300 mg tablet extended release 24 hr 300 mg PO DAILY Qty: 90 2RF Follow-up/Referrals: Sherry Mehta PA-C [Primary Care Provider] - 1 Week Time of Disposition: 08:35
== END 2024-11-29 08:28 | disposition home or self-care (01) ==
PROVIDERS: Emergency Provider Nurse Practitioner Family; PCP Physician Assistant Medical
DX: L73.9 Follicular disorder, unspecified (principal); Z87.891 Personal history of nicotine dependence; E78.5 Hyperlipidemia, unspecified
CPT/HCPCS: 99213; G0463